=== PATIENT | male | born 1975 | race Caucasian/White ===

== ENCOUNTER 2017-03-24 19:42 | Emergency (ER) | payer OTHER ==
[2017-03-24] MEDS ORDERED: ACETAMINOPHEN 325 MG TABLET PO ONE (19:58)
[2017-03-24] MEDS ORDERED: 0.9 % SODIUM CHLORIDE 1,000 ML IV ONE (19:58)
[2017-03-24] MEDS ORDERED: IBUPROFEN 400 MG TABLET PO ONE (19:58)
[2017-03-24] MEDS ORDERED: cefTRIAXone SODIUM ADVANTAGE 1 GM in NORMAL SALINE ADD-VANTAGE 50 ML IV ONE (19:58)
[2017-03-24] MEDS ORDERED: cefTRIAXone SODIUM 1 GM VIAL ONE (20:12)
[2017-03-24] MEDS ORDERED: ACETAMINOPHEN 500 MG TABLET PO ONE (20:12)
[2017-03-24] MEDS ORDERED: 0.9 % SODIUM CHLORIDE 100 ML IV ONE (20:13)
[2017-03-24] MEDS ORDERED: ACETAMINOPHEN 500 MG TABLET ONE (20:13)
[2017-03-24 20:19] LABS: BASOPHILS % 0.3 (0.0-1.5); EOSINOPHILS % 2.5 % (0.0-6.8); MEAN CORPUSCULAR HEMOGLOBIN 32.9 pg (28.0-34.0); MEAN CORPUSCULAR VOLUME 90.3 fl (80.0-100.0); MONOCYTES % 4.2 % (0.0-11.0); NEUTROPHILS # 8.2 # k/uL (1.4-7.7)
--- NOTE | 2017-03-24 20:45 | ED Physician Documentation ---
General Adult - HISTORIAN Historian: patient - HPI Stated Complaint: Right knee pain/swelling Chief Complaint: General Adult Additional Information: Red knee since 03/19. Only known injury is a "bump." Fever, 104 in ER. Redness and pain increasing. Seen at Urgent Care in [place] today and sent to ER at [facility]. Waited for some time w/o being seen so drove himself here. Last tylenol at 1300. 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 - ROS CONST: fever - PAST HX Past History: none Allergies/Adverse Reactions: Allergies Allergy/AdvReac Type Severity Reaction Status Date / Time aspirin Allergy Intermediate Verified 03/24/17 19:58 Sulfa (Sulfonamide Allergy Intermediate Verified 03/24/17 19:58 Antibiotics) Home Medications: Ambulatory Orders Medication Instructions Recorded NK [NK] 03/24/17 - SOCIAL HX Smoking History: non-smoker Alcohol Use: none Drug Use: none - FAMILY HX Family History: No - VITAL SIGNS Vital Signs: Vital Signs Temp Pulse Resp BP Pulse Ox 104.0 F H 107 H 22 115/67 98 03/24/17 19:42 03/24/17 19:42 03/24/17 19:42 03/24/17 19:42 03/24/17 19:42 - REVIEWED ASSESSMENTS Nursing Assessment Reviewed: Yes Vitals Reviewed: Yes Progress - Progress Progress: Patient Study Name: KIMBERLY MARCANO Date: Mar 24, 2017 8:37:34 PM PLEATER HAND Modality Type: CR Gender: M Description: LOWER EXTREMITY : 77 Institution: [facility] Physician: YEISON BILLS - ER 3 views of the right knee Clinical history: Right knee swelling Findings: No acute fracture or dislocation is identified. The alignment is normal. There is no joint effusion. Impression: Negative Electronically signed on Mar 24, 2017 8:51:38 PM PLEATER HAND by: Jeronimo Menjivar Blood cultures and IV Rocephin. One po dose of clindamycin and home on clinda. Erythema outlined, dated, time. Return precautions. ED Results Lab/Radiology - Lab Results Lab Results: Lab Results 03/24/17 20:14 WBC 10.20 K/ul K/ul (4.00-12.00) RBC 4.42 M/ul M/ul (3.90-5.20) Hgb 14.6 g/dL g/dL (12.0-18.0) Hct 39.9 % % (37.0-53.0) MCV 90.3 fl fl (80.0-100.0) MCH 32.9 pg pg (28.0-34.0) MCHC 36.5 g/dL H g/dL (30.0-36.0) RDW 13.1 % % (11.3-14.3) Plt Count 247 K/mm3 K/mm3 (130-400) Neut % (Auto) 81.1 % H % (39.0-79.0) Lymph % (Auto) 11.0 % L % (16.0-50.0) [place] % (Auto) 4.2 % % (0.0-11.0) Eos % (Auto) 2.5 % % (0.0-6.8) Baso % (Auto) 0.3 (0.0-1.5) Neut # (Auto) 8.2 # k/uL H # k/uL (1.4-7.7) Lymph # (Auto) 1.1 # k/uL # k/uL (0.6-4.0) [place] # (Auto) 0.4 # k/uL # k/uL (0.0-0.9) Eos # (Auto) 0.3 # k/uL # k/uL (0.0-0.6) Baso # (Auto) 0.0 # k/uL # k/uL (0.0-0.5) Reactive Lymphs % 0.9 % % (0.0-5.0) Reactive Lymphs # 0.1 # k/uL # k/uL (0.0-0.8) - Orders Orders: ED Orders Category Date Time Status Place IV Lock 1T Care 03/24/17 19:[address] IV Lock 1T Care 03/24/17 20:00 Active KNEE JOINT XRAY 3V [KNEE 3 VIEWS] [RAD] Stat Exams 03/24/17 Ordered BLOOD CULTURE Stat Lab 03/24/17 Ordered CBC/PLATELET/DIFF Routine Lab 03/24/17 20:14 Completed CMP Routine Lab 03/24/17 20:13 Received UA [URINALYSIS] Routine Lab 03/24/17 Ordered 0.9 % Sodium Chloride [Normal Saline] 1,000 ml Med 03/24/17 19:58 Active IV Q1H 0.9 % Sodium Chloride [Sodium Chloride] 100 ml Med 03/24/17 20:13 Discontinued IV .STK-MED Acetaminophen [Tylenol Extra Strength] Med 03/24/17 20:13 Discontinued 1,000 mg .ROUTE .STK-MED ONE Acetaminophen [Tylenol Extra Strength] Med 03/24/17 20:12 Discontinued 1,000 mg PO NOW ONE Acetaminophen [Tylenol] Med 03/24/17 19:58 Discontinued 975 mg PO NOW ONE Ibuprofen [Advil] Med 03/24/17 19:58 Discontinued 800 mg PO NOW ONE cefTRIAXone SODIUM ADVANTAGE [Rocephin Advantage] 1 gm Med 03/24/17 19:58 Discontinued Normal Saline Add-[place] [Sodium Chloride] 50 ml IV NOW cefTRIAXone SODIUM [Rocephin] Med 03/24/17 20:12 Discontinued 1 gm .ROUTE .STK-MED ONE General Adult Physical Exam - PHYSICAL EXAM GENERAL APPEARANCE: moderate distress EENT: eye inspection normal, ENT inspection normal, pharynx normal NECK: normal inspection, supple RESPIRATORY: no resp distress, breath sounds normal CVS: reg rate & rhythm (96 BPM), heart sounds normal, no murmur ABDOMEN: soft, normal bowel sounds, non-tender BACK: normal inspection, no CVA tenderness SKIN: warm/dry, normal color (except right leg) EXTREMITIES: other (superficial abrasion right ant knee. Erythema from mid thigh to ankle. Warm, tense.) NEURO: CN's nml as tested, motor nml, sensation nml, cognition normal Discharge Clincal Impression: Cellulitis Qualifiers: Site of cellulitis: extremity Site of cellulitis of extremity: lower extremity Laterality: right Qualified Code(s): L03.115 - Cellulitis of right lower limb Referrals: Natasha Martin MD [Primary Care Provider] - 2 Days Additional Instructions: Return to the ER if the redness doubles in size in 12 hours. Return to the ER if you have fever or pain you cannot control. Take ibuprofen or tylenol for any fever of 101 or higher. Take all the antibiotics as prescribed until they are completely gone. You should be seen by your provider in the next 5-10 days to be sure you are improving. Condition: Fair Disposition: 01 HOME, SELF-CARE Decision to Admit: NO Decision Time: 21:50
[2017-03-24 20:51] LABS: eGFR (African) > 60; eGFR (Non-African) > 60
[2017-03-24] MEDS ORDERED: traMADol HCL 50 MG TABLET PO ONE (21:00)
[2017-03-24] MEDS ORDERED: CLINDAMYCIN HCL 150 MG CAPSULE PO ONE (21:38)
[2017-03-24 22:20] VITALS: BP 125/70
--- NOTE | 2017-03-25 06:24 | Diagnostic Imaging Report ---
YEISON BILLS [facility] [id number] [facility] [address] [id number] Report Submission Date: Mar 24, 2017 8:51:38 PM NEGATIVE TURNER Patient Study Name: KIMBERLY MARCANO Date: Mar 24, 2017 8:37:34 PM NEGATIVE TURNER Modality Type: CR Gender: M Description: LOWER EXTREMITY : 77 Institution: [facility] Physician: YEISON BILLS 3 views of the right knee Clinical history: Right knee swelling Findings: No acute fracture or dislocation is identified. The alignment is normal. There is no joint effusion. Impression: Negative Electronically signed on Mar 24, 2017 8:51:38 PM NEGATIVE TURNER by: Jeronimo AYALA
[2017-03-25 06:40] LABS: APPEARANCE,URINE CLEAR (CLEAR); COLOR,URINE YELLOW (YELLOW); OCCULT BLOOD,URINE TRACE-LYSED (NEGATIVE); PH URINE 8.5 (5.0 - 8.0)
== END 2017-03-24 22:15 | disposition home or self-care (01) ==
LOC: ED 19:42
DX: L03.115 Cellulitis of right lower limb (principal)
CPT/HCPCS: 73562; 80053; 81002; 85025; 87040; A9270; J0696; J7030; 96361; 96365; 99283; S1016